=== PATIENT | male | born 1955 | race Caucasian/White ===

== ENCOUNTER → 2017-11-12 | Outpatient (CLI) | payer BC ==
--- NOTE | 2017-11-08 10:47 | MH ---
cc: NICK MANDUJANO Corrected Copy: 11/15/17 DATE OF ADMISSION: 11/12/2017 ADMITTING DIAGNOSIS: Cloudy posterior capsule left eye. HISTORY OF PRESENT ILLNESS This 62-year-old white male is coming through [facility] for the purpose of a YAG laser posterior capsulotomy of the left eye. He is status post bilateral cataract surgery with intraocular lens implants in the past and has done well postoperatively but now notices decreasing visual acuity in his left eye interfering with his daily activities. He was found to have a cloudy posterior capsule in that left eye and has consented to come through [facility] at this time for a YAG laser posterior capsulotomy. PAST MEDICAL HISTORY The patient has a history of hypertension, arthritis, cholesterol problems PAST SURGICAL HISTORY: surgical history includes the bilateral cataract surgery as well as appendectomy surgery for diverticulitis and toe surgery. MEDICATIONS medications include; 1. Toprol 2. Antidepressant. 3. Simvastatin 4. Advil ALLERGIES ASPIRIN UPSETS HIS STOMACH HE DOES NOT HAVE ALLERGIES. FAMILY HISTORY Noncontributory REVIEW OF SYSTEMS Noncontributory. PHYSICAL EXAMINATION: On ocular exam the patient's best corrected visual acuity is 20/20 in the right eye and 20/40 +2 in the left. Visual herrera are full to confrontation testing. Extraocular muscle exam reveals full versions with orthophoria at distance and near. Pupils are 3.5 mm equal, round, reactive to light without afferent defect. Anterior segment examination reveals a posterior chamber angle lens in place bilaterally with a cloudy posterior capsule in the left eye greater than the right. Intraocular pressures 19 in the right eye and 17 in the left by applanation tonometry. Dilated fundus exam revealed sharp disks with cup-to-disk ratio 0.3 bilaterally. The macula is clear bilaterally. A posterior vitreous detachment is present bilaterally. A choroidal nevus is noted superonasally in the right eye and it is about one disk diameter in size. IMPRESSION 1. Cloudy posterior capsule left eye greater than right. 2. Pseudophakia both eyes 3. Posterior vitreous detachment both eyes 4. Choroidal nevus right eye. PLAN: The plan is YAG laser posterior capsulotomy of the left eye through [facility]. MD JUANA Haynes/mary /10:15 AM /2:35 PM
[~2017-11-12] MED LIST: BALANCED SALT SOLN OPHT IRRIG 15 ML BTL ONE; FLUOROMETHOLONE 0.25% OPHT SUSP 5 ML BTL ONE; HYPROMELLOSE 0.3 % OPTH GEL 10 GM (0.34 FL OZ) TUBE ONE; PHENYLEPHRINE HCL 2.5% OPTH SOLN 2 ML BTL ONE; PROPARACAINE HCL 0.5% OPHT SOLN 15 ML BTL ONE; SIMV20 PO; TOPR100T15 PO; TROPICAMIDE 1% OPHT SOLN 15 ML BTL ONE; VENL75TA91 PO
--- NOTE | 2017-11-12 12:32 | MP ---
cc: NICK AGUILAR DATE OF SURGERY November 12, 2017 PREOPERATIVE DIAGNOSIS: Cloudy posterior capsule left eye. POSTOPERATIVE DIAGNOSIS: Cloudy posterior capsule left eye. OPERATION: YAG laser posterior capsulotomy, left eye. SURGEON: Nick Aguilar MD ANESTHESIA: Topical. COMPLICATIONS: None. INDICATIONS: See history and physical previously dictated. PROCEDURE: The patient arrived at [facility]. Blood pressure was 140/84, pulse 64, respirations 18. A drop of Alphagan P and Mydriacyl were instilled in the left eye. The patient was seated at the YAG laser. A drop of Alcaine was instilled in the left eye and a YAG laser posterior capsulotomy lens was placed on the anterior surface of the left cornea. YAG laser posterior capsulotomy was carried out utilizing 60 exposures of 1.7 millijoules. An adequate opening was seen following the procedure. A drop of Alphagan P was instilled topically. The patient was given a prescription for a topical steroid to be used four times per day and has an appointment for follow up on the first postoperative day in my office. The patient left the [facility] in satisfactory condition. Nick Aguilar MD MANAGER MERCHANDISE/SSB /11:29 AM /12:52 PM .3
== END ==
LOC: PHSDC 10:11
PROVIDERS: ATTEND Ophthalmology
DX: H26.492 Other secondary cataract, left eye (principal); H43.813 Vitreous degeneration, bilateral; D31.31 Benign neoplasm of right choroid; I10 Essential (primary) hypertension; M19.90 Unspecified osteoarthritis, unspecified site; Z96.1 Presence of intraocular lens